=== PATIENT | male | born 1940 ===

== ENCOUNTER 2019-08-14 16:07 | Emergency (ER) | payer OTHER ==
[~2019-08-14 16:07] MED LIST: Iopamidol-370 76% 500 ML 1 ML ONE
[2019-08-14 17:12] LABS: #Eosinphils 0.3 thou/uL (0.0-0.7); #Lymphocytes 1.4 thou/uL (1.20-3.40); #Monocytes 0.6 thou/uL (0.11-0.59); %Basophils 0.3 % (0.0-1.0); %Eosinophils 3.6 % (0.0-10.0); %Lymphocytes 16.3 % (21.0-51.0); %Monocytes 7.1 % (0.0-10.0); %Neutrophils 72.7 % (42.0-75.0); Hemoglobin 14.1 g/dL (14.0-18.0); Mean Corpuscular HGB CONC 32.3 g/dL (32.0-36.0); Mean Corpuscular Hemoglobin 27.5 pg (27.0-31.0); Mean Corpuscular Volume 85.4 fL (78.0-98.0); Mean Platelet Volume 8.2 fL (7.4-10.4); Platelet Count 236 thou/uL (130-400); RBC Distribution Width 13.3 % (11.5-14.5); Red Blood Cell (RBC) Count 5.11 mill/uL (4.70-6.10); White Blood Cell (WBC) Count 8.3 thou/uL (4.8-10.8)
[2019-08-14 17:38] LABS: ALT (SGPT) 16 U/L (8-55); AST (SGOT) 21 U/L (5-34); Albumin 3.8 g/dL (3.4-4.8); Alkaline Phosphatase 75 U/L (40-110); Anion Gap 13 mmol/L (10-20); BUN (Urea Nitrogen) 15 mg/dL (8.4-25.7); Bilirubin, Total 0.4 mg/dL (0.2-1.2); Calc. Creatinine Clearance 0 mL/min (70-130); Carbon Dioxide 24 mmol/L (23-31); Chloride 104 mmol/L (98-107); Estimated GFR-MDRD 89; Glucose 119 mg/dL (83-110); Lipase 15 U/L (8-78); Potassium 3.7 mmol/L (3.5-5.1); Protein, Total 6.8 g/dL (5.8-8.1); Sodium 137 mmol/L (136-145)
[2019-08-14 17:52] LABS: Bilirubin Negative (Negative); Blood, Urine Negative (Negative); Clarity Clear (Clear); Glucose, Urine (Dipstick) Normal (Negative); Leukocyte Negative Leu/uL (Negative); Nitrite Negative (Negative); Protein, Urine (Dipstick) Negative (Neg-Trace); Urobilinogen Normal mg/dL (Less than 2)
[2019-08-14] MEDS ORDERED: Metoclopramide HCl 10 MG/2 ML VIAL ONE (18:12)
--- NOTE | 2019-08-14 18:40 | CT ---
EXAM: CT ABDOMEN AND PELVIS HISTORY: Right-sided abdominal pain COMPARISON: None. Procedure: Multiple contiguous axial images were obtained and a CT of the abdomen and pelvis with IV contrast. C oronal reformats were performed. FINDINGS: Lower Chest: Bibasilar consolidation with air bronchograms. Vessels: Normal caliber aorta. Atherosclerosis. No significant stenosis Heart: Upper normal heart size. Small amount of pericardial fluid. Abdomen: Portal vein:Patent Gallbladder: Nonspecific mild gallbladder wall enhancement. No CT evidence of cholelithiasis or geoffrey cystitis Liver: 0.4 cm hypodensity in the posterior segment of the right hepatic lobe. No enhancing masses. Pancreas: within normal limits. Spleen: within normal limits. Adrenals: within normal limits. Kidneys: Symmetric enhancement. No obstructive uropathy. 1.6 cm cyst in the left upper pole cortex. Peritoneum: No ascites or free air, no fluid collection. Bowel: Limited evaluation due to the lack of oral contrast administration. No evidence of bowel obstr uction. Ileocecal junction is unremarkable. Normal caliber appendix. Scattered fecal material in a nondistended, nondilated colon. Mesentery and Retroperitoneum: No enlarged mesenteric or retroperitoneal lymph nodes. Abdominal Wall: within normal limits. Pelvis: Reproductive Organs: Mildly enlarged prostate gland causing mass effect upon the floor of the urinary bladder. Pelvis: No mass, lymphadenopathy, free air or free fluid. Bladder: within normal limits. Bones: within normal limits. IMPRESSION: 1. No evidence of acute intraabdominal\pelvic abnormality. 2. Bibasilar consolidation which may represent atelectasis, pneumonia or aspiration. Continued survei llance is recommended. 3. Nonspecific enhancement of the gallbladder wall. No definite CT evidence of cholecystitis.
--- NOTE | 2019-08-14 20:00 | ULT ---
EXAM: US Gallbladder RUQ CLINICAL HISTORY: Abdominal pain. COMPARISON: None. FINDINGS: Pancreas: Obscured by bowel gas Liver:Appropriate echotexture. No hepatic masses or intrahepatic biliary dilatation. The contour of t he hepatic margin is maintained. Right hepatic lobe measures 14.8 cm Gallbladder: No sonographic evidence of cholelithiasis, gallbladder wall thickening or pericholecysti c fluid. Skinner's sign:Negative Portal Vein: Patent. Appropriate directional flow Bile ducts: Common bile duct diameter 0.3 cm Right kidney: Right renal cortical thinning. No hydronephrosis.. Right kidney measures 8.7 cm in alexey th. IMPRESSION: 1. No sonographic evidence of cholelithiasis or cholecystitis.
[2019-08-14] MEDS ORDERED: Mag-Al 1200 mg/1200 mg/30 ML UDCUP ONE (20:12)
[2019-08-14] MEDS ORDERED: Lidocaine Viscous Sol 2% 15 ml UD Cup ONE (20:12)
== END 2019-08-14 22:01 ==
LOC: ERS 16:07
DX: R10.31 Right lower quadrant pain (principal); R10.811 Right upper quadrant abdominal tenderness; J44.9 Chronic obstructive pulmonary disease, unspecified; E78.5 Hyperlipidemia, unspecified; K21.9 Gastro-esophageal reflux disease without esophagitis; E03.9 Hypothyroidism, unspecified; I11.0 Hypertensive heart disease with heart failure; I50.9 Heart failure, unspecified; Z79.899 Other long term (current) drug therapy; Z87.01 Personal history of pneumonia (recurrent); Z79.51 Long term (current) use of inhaled steroids
CPT/HCPCS: 36415; 74177; 76705; 80053; 81003; 83605; 83690; 84484; 85025; 93005; 96365; 96366; J2765; Q9967